=== PATIENT | female | born 1995 | race Caucasian/White ===

== ENCOUNTER 2017-01-19 00:08 | Emergency (ER) | payer OTHER ==
[~2017-01-19] VITALS: Ht 165.1 cm; Wt 90.6 kg
[2017-01-19 00:16] VITALS: TEMP 36.8; Ht 165.1 cm; Wt 90.6 kg
[2017-01-19 00:36] VITALS: O2SAT 99
[2017-01-19 03:09] VITALS: BP 130/87; PULSE 97; O2SAT 98
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
== END 2017-01-19 03:03 | disposition home or self-care (01) ==
LOC: EDBD 00:08 → C.EDB 00:10
DX: S61.412A Laceration without foreign body of left hand, initial encounter (principal); S16.1XXA Strain of muscle, fascia and tendon at neck level, initial encounter; S06.0X0A Concussion without loss of consciousness, initial encounter; S00.83XA Contusion of other part of head, initial encounter; S10.83XA Contusion of other specified part of neck, initial encounter; S01.552A Open bite of oral cavity, initial encounter; V43.52XA Car driver injured in collision with other type car in traffic accident, initial encounter; R40.2412 Glasgow coma scale score 13-15, at arrival to emergency department